=== PATIENT | female | born 1990 | race American Indian/Alaskan Native ===

== ENCOUNTER 2019-04-20 00:34 | Emergency (ER) | payer BC ==
--- NOTE | 2019-04-20 04:02 | XRay Report ---
CHEST 1 VIEW, 04/20/2019 3:39 AM CLINICAL INFORMATION/INDICATION: Chest pain for one week COMPARISON: None FINDINGS: SUPPORT DEVICES: None. HEART: The heart is normal in size. LUNGS/PLEURA: The lungs are clear of focal airspace disease or significant pleural effusion. ADDITIONAL FINDINGS: No additional acute findings. IMPRESSION: 1. No evidence of acute cardiopulmonary process. Signer Name: Nunu Dorado MD Signed: 04/20/2019 3:57 AM Workstation Name: [id number]
--- NOTE | 2019-04-20 08:39 | Emergency Department Report ---
ED General Adult HPI - General Chief complaint: Chest Pain Stated complaint: TIGHTNESS IN CHEST WHEN BREATHING Time Seen by Provider: 04/20/19 07:33 Source: patient Mode of arrival: Ambulatory Limitations: No Limitations - History of Present Illness Initial comments: This is a 28-year-old female with no past medical history of asthma who presents to ED complaining of bilateral upper chest pain that initially began 2 weeks ago. Patient states last night she experienced a worsening of the pain she is why she came in today to be evaluated. Patient describes pain as throbbing aching that is localized to her bilateral upper chest. Patient denies any trauma, falls, injuries to the chest. She denies being on any medication or taking any medications. Other than intermittent coughing that began 2 days ago patient has no other significant history. -: week(s) (2) Radiation: non-radiation Severity scale (0 -10): 4 Quality: aching Consistency: intermittent Associated Symptoms: cough. denies: confusion, headaches, shortness of breath, syncope Treatments Prior to Arrival: none - Related Data Previous Rx's Medication Instructions Recorded Last Taken Type Ibuprofen [Motrin 800 MG tab] 800 mg PO Q8HR PRN #30 tablet 04/20/19 Unknown Rx Allergies Allergy/AdvReac Type Severity Reaction Status Date / Time No Known Allergies Allergy Unverified 06/30/15 09:19 ED Review of Systems ROS: Stated complaint: TIGHTNESS IN CHEST WHEN BREATHING Other details as noted in HPI Comment: All other systems reviewed and negative ED Past Medical Hx - Past Medical History Previous Medical History?: No - Surgical History Past Surgical History?: No - Social History Smoking Status: Never Smoker Substance Use Type: None - Medications Home Medications: Home Medications Medication Instructions Recorded Confirmed Last Taken Type Ibuprofen [Motrin 800 MG tab] 800 mg PO Q8HR PRN #30 tablet 04/20/19 Unknown Rx ED Physical Exam - General Limitations: No Limitations General appearance: alert, in no apparent distress - Head Head exam: Present: atraumatic, normocephalic - Eye Eye exam: Present: normal appearance - ENT ENT exam: Present: mucous membranes moist - Neck Neck exam: Present: normal inspection, full ROM - Respiratory Respiratory exam: Present: normal lung sounds bilaterally, chest wall tenderness. Absent: respiratory distress, wheezes, rales, rhonchi, accessory muscle use - Cardiovascular Cardiovascular Exam: Present: regular rate, normal rhythm. Absent: systolic murmur, diastolic murmur, rubs, gallop - GI/Abdominal GI/Abdominal exam: Present: soft, normal bowel sounds - Extremities Exam Extremities exam: Present: normal inspection - Back Exam Back exam: Present: normal inspection - Neurological Exam Neurological exam: Present: alert, oriented X3 - Psychiatric Psychiatric exam: Present: normal affect, normal mood - Skin Skin exam: Present: warm, dry, intact, normal color. Absent: rash ED Course Vital Signs 04/20/19 04/20/19 01:01 09:00 Temperature 98.8 F 98.1 F Pulse Rate 74 63 Respiratory 18 18 Rate Blood Pressure 125/93 Blood Pressure 130/84 [Right] O2 Sat by Pulse 99 100 Oximetry ED Medical Decision Making - Radiology Data Radiology results: report reviewed Report shows no airway disease or any acute disease. - Medical Decision Making 28-year-old female who presented with atypical chest pain most likely secondary to costochondritis. Discussed x-ray findings with the patient. Discussed the patient to follow-up with primary care physician in 3-5 days. At the time of evaluation patient has stated that pain is a bit resolved. She received pain and to 3 out of 10. Discussed with the patient if she has any worsening symptoms or any new onset of symptoms to return to the ED immediately. Critical care attestation.: If time is entered above; I have spent that time in minutes in the direct care of this critically ill patient, excluding procedure time. ED Disposition Clinical Impression: Acute costochondritis Disposition: DC-01 TO HOME OR SELFCARE Is pt being admited?: No Does the pt Need Aspirin: No Condition: Stable Instructions: Chest Pain (ED), Costochondritis (ED) Additional Instructions: Make sure to follow up with the primary care physician as discussed. Take all your medications as you've been prescribed. If you have any worsening symptoms or develop new symptoms please return to ED immediately. Prescriptions: Ibuprofen [Motrin 800 MG tab] 800 mg PO Q8HR PRN #30 tablet PRN Reason: Pain Referrals: PRIMARY CARE, [Primary Care Provider] - 3-5 Days [facility] [Provider Group] - 3-5 Days [facility] [Provider Group] - 3-5 Days [facility] [Outside] - 3-5 Days [facility] [Outside] - 3-5 Days Forms: Accompanied Note, Work/School Release Form(ED) Time of Disposition: 08:42
[2019-04-20 09:01] VITALS: BP 130/84
== END 2019-04-20 09:03 | disposition home or self-care (01) ==
LOC: ED 00:34
DX: M94.0 Chondrocostal junction syndrome [Tietze] (principal)
CPT/HCPCS: 71046; 99283